=== PATIENT | male | born 1975 | race American Indian/Alaskan Native ===

== ENCOUNTER 2019-01-21 16:25 | Emergency (ER) | payer SELFPAY ==
[2019-01-21 16:59] VITALS: BP 100/58
--- NOTE | 2019-01-21 17:01 | Emergency Department Report ---
Blank Doc - Documentation Documentation: This is a 43-year-old male that presents with a need for a place to stay and n eeds administrator social welfare consult. Denies any SI/HI. This initial assessment/diagnostic orders/clinical plan/treatment(s) is/are subject to change based on patient's health status, clinical progression and re- assessment by fellow clinical providers in the ED. Further treatment and workup at subsequent clinical providers discretion. Patient/guardians urged not to elope from the ED as their condition may be serious if not clinically assessed and managed. Initial orders include: 1- Patient sent to [facility] for further evaluation and treatment
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
== END 2019-01-21 20:04 | disposition home or self-care (01) ==
LOC: ED 16:25
DX: F41.9 Anxiety disorder, unspecified (principal); F32.9 Major depressive disorder, single episode, unspecified; Z59.0 Homelessness; I10 Essential (primary) hypertension; F20.9 Schizophrenia, unspecified; F17.200 Nicotine dependence, unspecified, uncomplicated
CPT/HCPCS: 99283